=== PATIENT | female | born 1945 | race Caucasian/White ===

== ENCOUNTER 2022-06-15 07:52 | Outpatient (CLI) | payer OTHER, SELFPAY | END 2022-06-15 07:53 | disposition home or self-care (01) | LOC: INJ CL 07:54 | PROVIDERS: PCP Family Medicine; Visit Provider Family Medicine | DX: M54.16 Radiculopathy, lumbar region (principal); M51.36 Other intervertebral disc degeneration, lumbar region | CPT/HCPCS: 62323; J0702; Q9966 ==

== ENCOUNTER 2023-07-19 06:59 | Outpatient (CLI) | payer OTHER, SELFPAY | END 2023-07-19 07:00 | disposition home or self-care (01) | LOC: INJ CL 07:00 | PROVIDERS: PCP Family Medicine; Visit Provider Family Medicine | DX: M54.16 Radiculopathy, lumbar region (principal); M51.36 Other intervertebral disc degeneration, lumbar region | CPT/HCPCS: 62323; J0702; Q9966 ==